=== PATIENT | female | born 1995 | race Two or more races ===

== ENCOUNTER 2023-12-20 20:33 | Emergency (ER) | payer OTHER ==
[~2023-12-20] VITALS: Ht 167.6 cm; Wt 72.6 kg
[2023-12-20] MEDS ORDERED: LEVOTHYROXINE25 MC2 PO (21:05)
[2023-12-20] MEDS ORDERED: TOPROL XL25 M1 PO (21:05)
[2023-12-20] MEDS ORDERED: VITAMIN D-40010 MCG PO (21:06)
[2023-12-21 00:39] LABS: INR 1.03; PARTIAL THROMBOPLASTIN TIME 28.5 SECONDS (22.0-34.0); PROTHROMBIN TIME 10.8 SECONDS (9.0-11.5)
[2023-12-21 00:45] LABS: PH,URINE 5.5 (5.0-8.0); URINE APPEARANCE Clear; URINE BILIRRUBIN Negative (NEGATIVE); URINE BLOOD Small; URINE COLOR Yellow; URINE GLUCOSE Negative (NEGATIVE); URINE LEUKOCYTE Negative; URINE NITRATE Negative; URINE PROTEIN Negative (NEGATIVE); URINE UROBILINOGEN 0.2 E.U./dl
[2023-12-21 00:49] LABS: URINE BACTERIA 27.7 uL (0.0-1933); URINE EPITHELIAL CELLS 10.9 uL (0.0-38.8); URINE RBC 12.3 uL (0.0-20.8); URINE WBC 5.7 uL (0.0-23.2)
[2023-12-21 01:09] LABS: HEMATOCRIT 36.7 % (36.0-45.00); HEMOGLOBIN 12.9 g/dL (12.0-15.00); MEAN CELL VOLUME 86.3 fL (80.00-100.00); MEAN CORPUSCULAR HEMOGLOBIN 30.2 pg (27.00-32.0); PLATELET COUNT 260 K/uL (150-450); RED BLOOD COUNT 4.26 M/uL (4.00-6.00); RED CELL DISTRIBUTION WIDTH 13.2 % (11.5-14.5)
[2023-12-21 01:10] LABS: CREATININE SERUM 0.64 mg/dL (0.55-1.02); GFR 109.71; POTASSIUM 3.56 mEq/L (3.5-5.1)
== END 2023-12-21 03:34 | disposition home or self-care (01) ==
LOC: ER 20:33
PROVIDERS: General Practice
DX: O20.9 Hemorrhage in early pregnancy, unspecified (principal); Z3A.01 Less than 8 weeks gestation of pregnancy

== ENCOUNTER → 2024-06-19 15:32 | Outpatient (CLI) | payer OTHER ==
[~2024-06-19 15:32] MED LIST: LEVOTHYROXINE25 MC2 PO; TOPROL XL25 M1 PO; VITAMIN D-40010 MCG PO
== END | disposition home or self-care (01) ==
LOC: PRENATAL 15:32
PROVIDERS: ATTEND Obstetrics & Gynecology Maternal & Fetal Medicine
DX: O26.849 Uterine size-date discrepancy, unspecified trimester (principal); O36.8199 Decreased fetal movements, unspecified trimester, other fetus; O99.280 Endocrine, nutritional and metabolic diseases complicating pregnancy, unspecified trimester; O99.019 Anemia complicating pregnancy, unspecified trimester; Z3A.31 31 weeks gestation of pregnancy